=== PATIENT | male | born 1985 | race Caucasian/White ===

== ENCOUNTER 2019-09-02 12:01 | Emergency (ER) | payer OTHER, BC ==
[~2019-09-02] VITALS: Ht 167.6 cm; Wt 79.4 kg
[~2019-09-02 12:01] MED LIST: CRUTCH4 USE; FLUR100 PO; HYDACE5 PO; METCAR500 PO
[2019-09-02] MEDS ORDERED: Robaxin-750750 MG PO (12:31)
[2019-09-02] MEDS ORDERED: KETO10 PO (12:31)
== END 2019-09-02 12:56 | disposition home or self-care (01) ==
LOC: ER 12:01
DX: M62.830 Muscle spasm of back (principal); Z87.891 Personal history of nicotine dependence
CPT/HCPCS: 96372; 99283-25; J1885